=== PATIENT | female | born 1990 | race Caucasian/White ===

== ENCOUNTER 2017-09-30 01:45 | Inpatient (IN) | payer BC ==
[2017-09-30 02:24] VITALS: BMI 34.0
[2017-09-30 02:40] LABS: Amnisure Internal Control QC ACCEPTABLE (ACCEPTABLE)
[2017-09-30 02:53] LABS: Amnisure Test No Membranes Rupture (No Rupture)
[2017-09-30] MEDS ORDERED: Ondansetron HCl/PF 4 MG/2 ML Vial IVP PRN ×5 (03:12→13:30)
[2017-09-30] MEDS ORDERED: Lidocaine 1% (PF) 30 ML VIAL SC PRN (03:12)
[2017-09-30] MEDS ORDERED: HYDROcodone/Acetaminophen 5/325 mg Tablet PO PRN ×2 (03:12)
[2017-09-30] MEDS ORDERED: Butorphanol Tartrate 1 MG/ML VIAL SLOW IVP PRN (03:12)
[2017-09-30] MEDS ORDERED: Ibuprofen 800 MG TAB PO PRN (03:12)
[2017-09-30] MEDS ORDERED: NS / Oxytocin 40 units/1000ml 1,000 ML IV PRN (03:12)
[2017-09-30] MEDS ORDERED: Lactated Ringer's 1,000 ML IV SCH ×2 (03:15→13:30)
[2017-09-30] MEDS: Lactated Ringer's 1,000 ML IV SCH ×2 (03:47→08:12)
[2017-09-30 04:13] LABS: Mean Corpuscular HGB CONC 35.8 g/dL (32.0-36.0); Mean Corpuscular Hemoglobin 31.7 pg (27.0-31.0); Mean Corpuscular Volume 88.6 fL (78.0-98.0); Mean Platelet Volume 8.8 fL (7.4-10.4); Platelet Count 195 thou/uL (130-400); RBC Distribution Width 11.6 % (11.5-14.5); Red Blood Cell (RBC) Count 4.11 mill/uL (4.20-5.40); White Blood Cell (WBC) Count 14.3 thou/uL (4.8-10.8)
[2017-09-30 04:27] LABS: HBSAg Index 0.16 S/CO (0-0.99); HIV (1/2) Antibody/Antigen Non-Reactive (NonReactive); Hep B Surf Ag Non-Reactive S/CO (NonReactive)
[2017-09-30 05:51] LABS: Syphilis Antibody Nonreactive (Nonreactive); Syphilis Antibody Index 0.05 S/CO (<1.00 Non-Reactive)
[2017-09-30] MEDS ORDERED: NS w/ Oxytocin 10 units 500 ML ONE (06:53)
[2017-09-30] MEDS ORDERED: DISCONTINUE ALL PREVIOUS NARCOTICS FS SCH (08:30)
[2017-09-30] MEDS ORDERED: Bupivacaine 0.5% 20 ML, fentaNYL Citrate/PF 400 MCG in Sodium Chloride 0.9% 72 ML EPIDURAL SCH (08:30)
[2017-09-30] MEDS ORDERED: Naloxone HCl 0.4 mg/ml Vial IVP PRN ×4 (10:35→12:31)
[2017-09-30] MEDS ORDERED: Acetaminophen 325 MG TAB PO PRN ×2 (10:35→13:30)
[2017-09-30] MEDS ORDERED: Lactated Ringer's 500 ML IV PRN (10:35)
[2017-09-30] MEDS ORDERED: diphenhydrAMINE 50 MG/ML VIAL IVP PRN ×2 (10:35→12:31)
[2017-09-30] MEDS ORDERED: ePHEDrine/0.9% NaCl/PF SYRINGE 50 mg/10 ml SLOW IVP PRN (10:35)
[2017-09-30] MEDS ORDERED: Eucerin (Mineral Oil/Petrolatum,White) 30 gm Jar TOP PRN ×2 (10:35→12:31)
[2017-09-30] MEDS ORDERED: Promethazine HCl 25 MG/ML VIAL IM PRN ×2 (10:35→12:31)
[2017-09-30] MEDS ORDERED: Communication Order-Pharmacy FS SCH ×2 (10:45→12:45)
[2017-09-30] MEDS ORDERED: fentaNYL Citrate/PF 400 MCG, Bupivacaine 0.5% 20 ML in Sodium Chloride 0.9% 72 ML EPIDURAL SCH (10:45)
[2017-09-30] MEDS ORDERED: Oxytocin 10 UNITS/ML VIAL ONE (11:57)
[2017-09-30] MEDS ORDERED: PHENYLEPHRINE-NS 100 MCG/ML 10 ML SYRINGE ONE ×2 (11:57→12:40)
[2017-09-30] MEDS ORDERED: Ketorolac Tromethamine 30 MG/ML VIAL ONE ×2 (11:59→12:40)
[2017-09-30] MEDS ORDERED: CEFAZOLIN/Water 2 GM/20 ML SYRINGE ONE (11:59)
[2017-09-30] MEDS ORDERED: Dexamethasone 4 mg/ml Vial ONE (11:59)
[2017-09-30] MEDS ORDERED: Ondansetron HCl/PF 4 MG/2 ML Vial ONE ×2 (11:59→12:40)
[2017-09-30] MEDS ORDERED: Naloxone HCl 0.4 mg/ml Vial IV PRN (12:31)
[2017-09-30] MEDS ORDERED: Promethazine HCl 25 MG SUPP PR PRN (12:31)
[2017-09-30] MEDS ORDERED: Meperidine HCl/PF 25 MG/ML VIAL SLOW IVP PRN (12:31)
[2017-09-30] MEDS ORDERED: HYDROmorphone 2 MG/ML VIAL SLOW IVP PRN (12:31)
[2017-09-30] MEDS ORDERED: Morphine PF 1 MG/ML SYR ONE (12:39)
[2017-09-30] MEDS ORDERED: Dexamethasone 20 MG/5 ML VIAL ONE (12:40)
[2017-09-30] MEDS ORDERED: Bupivacaine 0.75% W/DEXTROSE 8.25% 2 ML AMP ONE (12:41)
[2017-09-30] MEDS ORDERED: Ketorolac Tromethamine 30 MG/ML VIAL IVP SCH (12:45)
[2017-09-30] MEDS ORDERED: Meperidine HCl/PF 25 MG/ML VIAL ONE (13:00)
[2017-09-30] MEDS ORDERED: Simethicone Chewable 80 MG TAB PO PRN (13:30)
[2017-09-30] MEDS ORDERED: Lanolin Ointment 7 GM TUBE TOP PRN (13:30)
[2017-09-30] MEDS ORDERED: NS / Oxytocin 40 units/1000ml 1,000 ML IV SCH (13:30)
[2017-09-30] MEDS ORDERED: diphenhydrAMINE 25 MG CAP PO PRN (13:30)
[2017-09-30] MEDS ORDERED: Adacel (T-DAP) 0.5 ML VIAL IM ONE (13:30)
[2017-09-30] MEDS ORDERED: Bisacodyl 10 MG SUPP PR PRN (13:30)
[2017-09-30] MEDS: Ampicillin/Sulbactam 3 GM in Sodium Chloride 0.9% 100 ML IVPB SCH ×2 (14:35→22:21)
[2017-09-30] MEDS ORDERED: Bupivacaine HCl 0.5%/Epinephrine 1:200,000/PF 30 ml Vial ONE (16:20)
[2017-09-30] MEDS ORDERED: Lidocaine 2% PF Inj 2 ML VIAL ONE (16:20)
[2017-09-30] MEDS: Ketorolac Tromethamine 30 MG/ML VIAL IVP PRN (18:29)
[2017-09-30] MEDS: Docusate Calcium (SURFAK) 240 MG CAP PO SCH (22:18)
[2017-09-30] MEDS: Ferrous Sulfate 325 MG TAB PO SCH (22:19)
[2017-10-01] MEDS ORDERED: Meperidine HCl/PF 25 MG/ML VIAL IM PRN (00:30)
[2017-10-01] MEDS ORDERED: Zolpidem Tartrate 5 MG TAB PO PRN (00:30)
[2017-10-01] MEDS ORDERED: HYDROcodone/Acetaminophen 5/325 mg Tablet PO PRN (00:30)
[2017-10-01] MEDS: Ketorolac Tromethamine 30 MG/ML VIAL IVP PRN (02:57)
[2017-10-01 05:30] LABS: Hemoglobin 11.2 g/dL (12.0-16.0); Mean Corpuscular Hemoglobin 32.5 pg (27.0-31.0); Mean Corpuscular Volume 90.2 fL (78.0-98.0); Mean Platelet Volume 8.3 fL (7.4-10.4); Platelet Count 165 thou/uL (130-400); RBC Distribution Width 11.5 % (11.5-14.5); Red Blood Cell (RBC) Count 3.44 mill/uL (4.20-5.40); White Blood Cell (WBC) Count 18.8 thou/uL (4.8-10.8)
[2017-10-01] MEDS ORDERED: Sodium Chloride 0.9% 10 ML ONE (06:29)
[2017-10-01] MEDS: Ampicillin/Sulbactam 3 GM in Sodium Chloride 0.9% 100 ML IVPB SCH (06:31)
[2017-10-01] MEDS: Ferrous Sulfate 325 MG TAB PO SCH ×2 (09:09→22:53)
[2017-10-01] MEDS: Prenatal Vitamin 1 TAB PO SCH (09:12)
[2017-10-01] MEDS: HYDROcodone/Acetaminophen 5/325 mg Tablet PO PRN ×2 (09:12→19:07)
[2017-10-01] MEDS: Docusate Calcium (SURFAK) 240 MG CAP PO SCH ×2 (09:12→21:31)
[2017-10-01] MEDS: Ibuprofen 800 MG TAB PO SCH ×2 (14:22→21:31)
[2017-10-02] MEDS: Ibuprofen 800 MG TAB PO SCH ×2 (05:23→13:50)
[2017-10-02] MEDS: Ferrous Sulfate 325 MG TAB PO SCH (08:07)
[2017-10-02] MEDS: Docusate Calcium (SURFAK) 240 MG CAP PO SCH (09:56)
[2017-10-02] MEDS: Prenatal Vitamin 1 TAB PO SCH (09:56)
[2017-10-02 11:20] VITALS: BP 114/66; TEMP 98.3
--- NOTE | 2017-10-02 17:28 | OP ---
DATE OF PROCEDURE: 09/30/2017 ATTENDING STAFF PHYSICIAN: Nelson Myrick M.D. SURGEON: Nelson Myrick M.D. M[employer]MING MACHINE SETTER SURGEON: Uriel Jeffries M.D. PREOPERATIVE DIAGNOSES: 1. Term intrauterine at 39 weeks. 2. Prolonged rupture of membranes. 3. Nonreassuring heart rate tracing. POSTOPERATIVE DIAGNOSES: 1. Term intrauterine at 39 weeks. 2. Prolonged rupture of membranes. 3. Nonreassuring heart rate tracing. PROCEDURE: Primary low transverse section. ANESTHESIA: Epidural catheterization. FINDINGS: 1. Category 3 nonreassuring heart rate tracing with tachycardia, decreased beat to beat variability and late decelerations. 2. Vigorous male infant, 7 pounds 1 ounce, Apgars 8 and 9. 3. Normal uterus, tubes and ovaries. COMPLICATIONS: None. SPECIMENS REMOVED: 1. Cord blood. 2. Placenta to pathology secondary to finding suggestive of chorioamnionitis. BLOOD LOSS: 800-900 mL HISTORY AND INDICATIONS: Mrs. Talisha Joseph is a very pleasant 27-year-old white female, 1, para 0, who is followed in my clinic for obstetric care. Talisha presented to Labor and Delivery here at [facility] late on the evening of 09/29/2017 with spontaneous rupture of membranes and early labor. Her labor progressed without any problems or complications until the early afternoon of 09/30 at which time, the baby lost beat to beat variability and developed tachycardia. Corrective me asures were taken without significant improvement of the heart rate tracing. A decision was ma de to proceed with primary low transverse delivery secondary to nonreassuring heart ra te tracing and the patient being remote delivery. At the time, she had progressed to 4 cm, 90% effac ement and -1 station. The patient and her were counseled at length and questions were answer ed. Surgical disclosures were signed and placed in the chart. We will proceed with emergent deliver y as outlined. PROCEDURE IN DETAIL: After thorough consent and counseling, Talisha was taken to the operating room a nd adequate level of anesthesia was obtained by epidural catheterization. The patient was prepped an d draped in the usual sterile fashion for abdominal surgery. A Foster had previously been placed in t he bladder, which was noted to be draining clear urine. heart tones were obtained in the OR pr ior to initiation of the procedure and were in the high 150s. Once prepped and draped, attention was then turned to performing the primary delivery. A Pfannenstiel incision was made and carried sharply to the fascia, which was also sharply incised. The midline was identified and the rectus muscles were retracted laterally. The abdominal peritoneal cavity was entered with usual safeguards carried out. A retractor was placed and a bladder flap was created on the vesicouterine peritoneum. A low transverse incision was made on the well-developed l ower uterine segment. Upon entering the amniotic sac, scant amount of clear amniotic fluid was visua lized. The infant was noted to be vertex presentation in the occiput transverse position fairly low in the pelvis. The head was delivered and baby was bulb suctioned on the abdomen. Shoulders and bod y were then delivered in an atraumatic fashion. The cord was doubly clamped and cut and the infant w as handed to the neonatology team in attendance for the delivery. The was a vigorous viable m zarina weighing 7 pounds 1 ounce with Apgars of 8 and 9 obtained at 1 and 5 minutes respectively. Cord blood was obtained. The placenta was manually removed from the uterus. Intraoperatively, there was no suggestion as the cause to the nonreassuring heart rate tracing. The baby and amniotic flui d were somewhat warm, suspicious for developing chorea. Placenta sent to pathology for evaluation se condary to the above findings. The uterus was exteriorized and good tone was noted. The uterine cav ity was cleared of any remaining clot and fluid. The low transverse incision was closed with a runni ng locking ligature of #1 chromic. A second imbricating layer was placed to facilitate strength and hemostasis. The vesicouterine peritoneum was closed with a running ligature of 3-0 Monocryl. The po sterior cul-de-sac and gutters were cleared of clot and fluid. Seprafilm was applied to the low [place] sverse incision and to the anterior aspect of the uterus for adhesion prevention. The uterus was ret urned to the abdomen and good tone and hemostasis was once again appreciated. The uterus, fallopian tubes and ovaries were normal in appearance. Lap, sponge and needle counts were correct. The perito neum was then closed with a running ligature of 2-0 Vicryl. The rectus muscles were reapproximated i n the midline with interrupted ligatures of both 2-0 Vicryl and 0 chromic suture. The fascia was the n closed with 2 ligatures of 0 Vicryl suture, which were tied in the midline. Good fascial integrity was noted. The incision was irrigated with copious amount of warm normal saline. Subcutaneous tiss ue was closed with interrupted ligatures of 2-0 plain. The skin was closed with a subcuticular stitc h of 4-0 Monocryl and dressed with Dermabond. A pressure dressing and ice packs were subsequently pl aced. Lap, sponge and needle counts were correct x3. Estimated blood loss during the surgical proce dure was 800-900 mL. The patient was taken to recovery room in good condition. Immediately following surgery, Reygan's po stoperative temperature was noted to be 101.2. This was passed along to the pediatricians. Question s were answered to the patient and family's satisfaction. Mother and baby were doing well postoperat ively.
--- NOTE | 2017-10-05 06:37 | PQF ---
Talisha Joseph L JUSTIN MD [id number] [address] [place] [address] [id number] CLINICAL DOCUMENTATION CLARIFICATION FORM: POST DISCHARGE DATE: 10/05/2017 ATTN: Dr. Myrick Please exercise your independent, professional judgment in responding to the clarification form. Clinical indicators are provided on the bottom of this form for your review Please check appropriate box(s) to clarify if the following diagnosis has been ruled in or ruled out: Chorioamnionitis [ ] Ruled in diagnosis [ ] Continue to treat [ ] Resolved [ ] Ruled out diagnosis [ ] Cannot rule out diagnosis [ ] Other diagnosis (please specify) [ ] Unable to determine In addition, please specify: Present on Admission (POA): [ ] Yes [ ] No [ ] Unable to determine For continuity of documentation, please document condition throughout progress notes and discharge summary. Thank You. CLINICAL INDICATORS - SIGNS / SYMPTOMS / LABS Per section operative report: Placenta to pathology secondary to finding suggestive of chorioamnionitis. The baby and amniotic fluid were somewhat warm, suspicious for developing chorea. Placenta sent to pathology for evaluation secondary to the above. Per pathology report: Microscopic findings: membranes--Extensive acute chorioamnionitis. Per discharge summary: Post op fever 101. RISK FACTORS Per section operative report/discharge summary: Prolonged SROM. TREATMENTS Per medications: IV Unasyn. (This form is maintained as a part of the permanent medical record) 2014 [employer] All Rights Reserved Cristina [email or web address] [phone] [email or web address]
== END 2017-10-02 15:00 | disposition home or self-care (01) | DRG 765 ==
LOC: L&D/OP 01:45 → L&D 03:31 → 3SW 16:44
PROVIDERS: ADMIT Obstetrics & Gynecology; ATTEND Obstetrics & Gynecology
PROC: 10D00Z1 Extraction of Products of Conception, Low, Open Approach (ICD-10-PCS; principal; 2017-09-30)
DX: O42.02 Full-term premature rupture of membranes, onset of labor within 24 hours of rupture (principal); O86.4 Pyrexia of unknown origin following delivery; O76 Abnormality in fetal heart rate and rhythm complicating labor and delivery; Z3A.39 39 weeks gestation of pregnancy; Z37.0 Single live birth
CPT/HCPCS: 36415; 51702; 84112; 85027; 86780; 86850; 86900; 86901; 87340; 87389; 88307; 90715; 99285; A4216; J0295; J0670; J1100; J1885; J2175; J2274; J2405; J2590; J3010; J3490; J7050